=== PATIENT | female | born 1955 | race Caucasian/White ===

== ENCOUNTER 2018-10-03 20:35 | Emergency (ER) | payer SELFPAY ==
[~2018-10-03] VITALS: Ht 165.1 cm; Wt 59.9 kg
[2018-10-03 21:54] LABS: Basophils # (auto) 0.1 uL; Basophils % (auto) 0.5 % (0.0-2.0); Eosinophils # (auto) 0.1 uL; Eosinophils % (auto) 1.1 % (0.0-7.0); Hematocrit 44.8 % (36.0-46.0); Lymphocytes % (auto) 14.8 % (10.0-50.0); Mean Corpuscular Hemoglobin 32.9 pg (28.0-32.0); Mean Corpuscular Hgb Conc. 33.5 g/dL (32.0-36.0); Mean Corpuscular Volume 98.3 fL (80.0-100.0); Monocytes # (auto) 1.5 uL; Monocytes % (auto) 11.5 % (0.0-12.0); Neutrophils # (auto) 9.6 uL; Neutrophils % (auto) 72.1 % (37.0-80.0); Platelet Count (auto) 193 10^3/uL (140-450); Red Blood Cells 4.55 10^6/uL (4.0-5.20); Red Cell Distribution Width 12.9 % (11.8-14.3); White Blood Cell 13.3 10^3/uL (4.4-10.8)
[2018-10-03 22:11] LABS: Potassium 3.5 mmol/L (3.5-5.1)
[2018-10-03 22:15] LABS: Albumin 3.5 g/dL (3.4-5.0); Calcium 9.3 mg/dL (8.5-10.1)
[2018-10-03 22:17] LABS: BUN/Creatinine Ratio 15.1
[2018-10-03 22:20] LABS: Bilirubin, Total 0.5 mg/dL (0.2-1.0); Total Protein 7.5 g/dL (6.4-8.2)
[2018-10-04 03:42] LABS: Urine Bacteria FEW /hpf (None Seen); Urine Blood Negative /uL (Negative); Urine Mucus FEW (None Seen); Urine Specific Gravity 1.029 (1.001-1.035); Urine WBC 2 /hpf (0 - 5)
[2018-10-04] MEDS ORDERED: PROMETHAZINE HCL 25 MG/ML 1ML IV PRN (07:45)
[2018-10-04] MEDS: KETOROLAC TROMETH 30 MG/ML 1ML VIAL IV ONE (08:00)
[2018-10-04] MEDS: SODIUM CHLORIDE 0.9% 1,000 ML IV ONE (08:00)
[2018-10-04 11:31] VITALS: BP 114/65
== END 2018-10-04 11:59 | disposition home or self-care (01) ==
LOC: EDBD 20:35 → ER 20:42
DX: M94.0 Chondrocostal junction syndrome [Tietze] (principal); M16.12 Unilateral primary osteoarthritis, left hip; K59.01 Slow transit constipation; M05.751 Rheumatoid arthritis with rheumatoid factor of right hip without organ or systems involvement; M05.752 Rheumatoid arthritis with rheumatoid factor of left hip without organ or systems involvement; I10 Essential (primary) hypertension; K21.9 Gastro-esophageal reflux disease without esophagitis; Z90.89 Acquired absence of other organs; Z88.6 Allergy status to analgesic agent; Z88.2 Allergy status to sulfonamides
CPT/HCPCS: 36415; 74176; 76705; 80053; 81001; 82150; 83690; 83735; 85025; 93005; 96374; 99284; J1885; J7030